=== PATIENT | female | born 1940 | race Caucasian/White ===

== ENCOUNTER → 2018-01-27 | Outpatient (CLI) | payer MEDICARE | END | disposition home or self-care (01) | LOC: RAH 12:37 | PROVIDERS: ATTEND Internal Medicine | DX: I70.203 Unspecified atherosclerosis of native arteries of extremities, bilateral legs (principal) | CPT/HCPCS: 93925 ==

== ENCOUNTER → 2019-01-16 | Outpatient (CLI) | payer OTHER | END | disposition home or self-care (01) | LOC: RAH 09:09 | PROVIDERS: ATTEND Internal Medicine Cardiovascular Disease | DX: Z13.6 Encounter for screening for cardiovascular disorders (principal) | CPT/HCPCS: 75571 ==

== ENCOUNTER 2021-05-05 07:52 | Day surgery (SDC) | payer MEDICARE ==
[2021-04-30 13:04] LABS: BASOPHILS % (AUTO) 0.9 % (0.0-5.0); HEMATOCRIT 33.9 % (36-48); LYMPHOCYTES % (AUTO) 17.2 % (21.0-51.0); MEAN CORPUSCULAR HEMOGLOBIN 31.8 pg (27.0-33.0); MEAN CORPUSCULAR HGB CONC 33.9 g/dL (32.0-36.0); MEAN CORPUSCULAR VOLUME 93.6 fL (79-99); MONOCYTES % (AUTO) 7.4 % (3.0-13.0); NEUTROPHILS % (AUTO) 72.3 % (40.0-77.0); PLATELET COUNT (AUTO) 194 K/uL (130-400); RED BLOOD CELL COUNT(AUTO) 3.62 MIL/uL (4.00-5.50); RED CELL DISTRIBUTION WIDTH 13.1 % (11.0-15.5); WHITE BLOOD COUNT (AUTO) 5.4 K/uL (4.8-10.8)
[2021-04-30 13:12] LABS: CREATININE 0.6 mg/dL (0.5-1.5); POTASSIUM 4.3 mmol/L (3.5-5.1)
[2021-05-01 09:26] VITALS: BP 140/80
[2021-05-02] MEDS: LEVOFLOXACIN 500 MG/D5W 100 ML 100 ML IV SCH (08:50)
[2021-05-05] VITALS (20 sets, daily range): BP systolic 116–141; BP diastolic 51–83
[~2021-05-05] VITALS: Ht 160 cm; Wt 61.1 kg
[~2021-05-05 07:52] MED LIST: ATOR40TA69 PO; CHOL500045 PO; CLOP75TA14 PO; L.AC1CAP6 PO; LOSA50TA64 PO; MAGN250T35 PO; OMEG-148 PO; vitamin c PO
[2021-05-05] MEDS ORDERED: LACTATED RINGERS 1000ML 1,000 ML IV ONE (08:01)
[2021-05-05] MEDS ORDERED: IOHEXOL-350 50ML VIAL IV ONE (08:06)
[2021-05-05] MEDS ORDERED: LIDOCAINE PF 100MG/5ML (2%) SYRINGE 5ML ONE (08:48)
[2021-05-05] MEDS ORDERED: PROPOFOL 10 MG/ML 20ML VIAL IV ONE (08:48)
[2021-05-05] MEDS ORDERED: FENTANYL CITRATE PF 50 MCG/1 ML 2ML VIAL ONE (08:49)
[2021-05-05] MEDS ORDERED: MIDAZOLAM HCL 1 MG/ML 2ML VIAL ONE (08:57)
[2021-05-05] MEDS: LEVOFLOXACIN 500 MG/D5W 100 ML 100 ML IV SCH (09:45)
[2021-05-05] MEDS ORDERED: ONDANSETRON 4MG INJ ONE (09:47)
[2021-05-05] MEDS ORDERED: DEXAMETHASONE SOD PHOSPHATE 10MG/ML 1ML VIAL ONE (09:49)
[2021-05-05] MEDS ORDERED: PHENYLEPHRINE HCL 10 MG/ML 1ML VIAL IV ONE (10:04)
[2021-05-05] MEDS ORDERED: METHYLENE BLUE 5 MG/ML AMP ONE (10:06)
[2021-05-05] MEDS ORDERED: PHENAZOPYRIDINE HCL 200 MG TABLET ONE (11:54)
== END 2021-05-05 13:19 | disposition home or self-care (01) ==
LOC: DAH 07:52
PROVIDERS: ATTEND Urology
DX: N30.21 Other chronic cystitis with hematuria (principal); Z20.822 Contact with and (suspected) exposure to COVID-19; I10 Essential (primary) hypertension; E11.9 Type 2 diabetes mellitus without complications; Z86.73 Personal history of transient ischemic attack (TIA), and cerebral infarction without residual deficits; Z79.01 Long term (current) use of anticoagulants; Z79.899 Other long term (current) drug therapy; Z87.891 Personal history of nicotine dependence; Z77.22 Contact with and (suspected) exposure to environmental tobacco smoke (acute) (chronic); Z98.890 Other specified postprocedural states; Z86.19 Personal history of other infectious and parasitic diseases
CPT/HCPCS: 36415; 52214; 74018; 74420; 80048; 82948; 85025; 87635; 93005; A4215; A4221; A4222; A4223; A4344; A4354; A4358; A4510; A4600; A4663; A6260; C1758 ×3; C9803; J1100; J2001; J2250; J2370; J2405; J2704; J3010; J7120; Q9967; Q9968; J1956